=== PATIENT | male | born 1990 | race Caucasian/White ===

== ENCOUNTER 2019-02-05 11:55 | Inpatient (IN) | payer OTHER ==
--- NOTE | 2019-02-05 14:21 | ED ---
Recheck HPI - General Chief Complaint: Recheck/Abnormal Lab/Rx Stated Complaint: cardiac issue Time Seen by Provider: 02/05/19 11:56 Source: patient, family, RN notes reviewed Mode of arrival: wheelchair Limitations: no limitations - History of Present Illness Initial Comments: Is a 28-year-old male history of atrial flutter with ablation when he was a teenager who recently has had near syncopal episodes. He was seen at [facility] today. Increasing symptoms he is found to have a sinus pause of at least 5 seconds on several occasions. Patient was initially to be transferred here for evaluation he chose to come by private vehicle. He has had some lightheadedness during the transfer no chest pain for his breath other symptoms. He does have a family history of heart disease including a sister that from torsades. Currently no other symptoms or complaints. - Related Data Home Medications Medication Instructions Recorded Confirmed No Known Home Medications 02/05/19 02/05/19 Allergies Allergy/AdvReac Type Severity Reaction Status Date / Time No Known Allergies Allergy Verified 02/05/19 12:22 Review of Systems ROS Statement: Those systems with pertinent positive or pertinent negative responses have been documented in the HPI. ROS Other: All systems not noted in ROS Statement are negative. Past Medical History Past Medical History: Atrial Flutter Additional Past Medical History / Comment(s): bradycardia s/p ablation (2007.) History of Any Multi-Drug Resistant Organisms: None Reported Past Surgical History: Ablation, Tonsillectomy Additional Past Surgical History / Comment(s): wisdom tooth extraction Past Psychological History: No Psychological Hx Reported Smoking Status: Never smoker Past Alcohol Use History: Occasional Past Drug Use History: None Reported General Exam - General Exam Comments Initial Comments: This is a well-developed well-nourished awake alert oriented 3 male Limitations: no limitations General appearance: alert, in no apparent distress Head exam: Present: atraumatic, normocephalic, normal inspection Eye exam: Present: normal appearance, PERRL, EOMI. Absent: scleral icterus, conjunctival injection, periorbital swelling ENT exam: Present: normal exam, mucous membranes moist Neck exam: Present: normal inspection. Absent: tenderness, meningismus, lymphadenopathy Respiratory exam: Present: normal lung sounds bilaterally. Absent: respiratory distress, wheezes, rales, rhonchi, stridor Cardiovascular Exam: Present: regular rate, normal rhythm, normal heart sounds. Absent: systolic murmur, diastolic murmur, rubs, gallop, clicks GI/Abdominal exam: Present: soft, normal bowel sounds. Absent: distended, tenderness, guarding, rebound, rigid Extremities exam: Present: normal inspection, full ROM, normal capillary refill. Absent: tenderness, pedal edema, joint swelling, calf tenderness Back exam: Present: normal inspection Neurological exam: Present: alert, oriented X3, CN II-XII intact Psychiatric exam: Present: normal affect, normal mood Skin exam: Present: warm, dry, intact, normal color. Absent: rash Course Vital Signs 02/05/19 02/05/19 11:57 13:16 Temperature 97.9 F Pulse Rate 65 57 L Respiratory 18 16 Rate Blood Pressure 115/36 116/71 O2 Sat by Pulse 98 98 Oximetry - Reevaluation(s) Reevaluation #1: 02/05/19 14:11 I did review the materials presented by staff at [address] [place] [address]. EKG at that facility did show sinus pause. Patient does state his resting heart rates been slow recently in the 50s and 60s apparently was found to be in the 40s at the other facility. Medical Decision Making - Medical Decision Making Repeat troponin was within normal limits. I did discuss case with Dr. Pavon the patient be admitted with consultation by Dr. Hatfield - Lab Data Lab Results 02/05/19 Range/Units 12:27 Troponin I <0.012 (0.000-0.034) ng/mL - EKG Data -: EKG Interpreted by Fl EKG shows normal: sinus rhythm (Sinus rhythm of 63. Interval 228 QRS duration 106 QT/QTC 414/423 for 3 AV block noted) Disposition Clinical Impression: Near syncope, Sinus pause Disposition: ADMITTED IP TO THIS [facility] Condition: Stable Referrals: John Keller MD [Primary Care Provider] - 1-2 days
[2019-02-05] MEDS ORDERED: NALOXONE 0.4 MG/ML 1 ML VIAL IV PRN (14:24)
--- NOTE | 2019-02-05 15:36 | P.CRDCN ---
History of Present Illness Consult date: 02/06/19 Requesting physician: Roque Estrada Reason for Consult (text): Near syncope Chief complaint: Near syncope History of present illness: This is a pleasant 28-year-old gentleman with history of atrial flutter, patient underwent ablation for this at the age of 17, and since then h as done very well. His heart rate normally runs in the 50s to 60s. According to the patient, he recently started running, gradually working himself of the running approximately 2-1/2 miles which she ran yesterday. One week ago the patient had an episode after running a two-mile run where he states that he felt like he was going to pass out, he sat down and the symptoms gradually resolved. Yesterday after running 2-1/2 miles, patient did well, the following morning he was at work, and again felt as though he was going to pass out, he states that he feels like everything is going black from his CPAP. He states that he sat down, checked his heart rate at that time which was in the 40s, he also states it felt as though he had prolonged pauses or periods of time without any pulse. He presented to her left hospital because of the symptoms. Patient is a nonsmoker, rarely drinks alcohol, does not drink energy drinks. He does state that he used to smoke but quit smoking a number of years ago. White blood cell count on MiraLAX 5.6, hemoglobin 14.6, platelet count 269, sodium 140, potassium 3.9, BUN 15, creatinine 0.8. Magnesium 1.9. Troponin 0.05. TSH 1.2. According to the documentation at [facility], patient was noted to have intermittent pauses lasting 3 seconds. Orthostatics were obtained which came back to be negative. He continued to have fairly frequent pauses according to the documentation of up to 4 seconds. Casodex patient was recommended to come to [facility] for further evaluation and treatment. Patient refused to be transported by ambulance and his drove him here. EKG sent for [facility] showed a normal sinus rhythm with evidence of 3 second pauses. Patient was scheduled at the end of the month to see Dr. Hatfield in the office as a new patient. At the time of my examination, patient feels well, denies any palpitations, no dizziness or lightheadedness. I pressure 120/70 with a heart rate of 60, 98% on room air. EKG on presentation here showed a normal sinus rhythm with a first-degree AV block. Past Medical History Past Medical History: Atrial Flutter Additional Past Medical History / Comment(s): bradycardia s/p ablation (2007.) History of Any Multi-Drug Resistant Organisms: None Reported Past Surgical History: Ablation, Tonsillectomy Additional Past Surgical History / Comment(s): wisdom tooth extraction Past Psychological History: No Psychological Hx Reported Smoking Status: Never smoker Past Alcohol Use History: Occasional Past Drug Use History: None Reported - Past Family History Sister(s) Additional Family Medical History / Comment(s): 2015 d/t Torsades de pointes. Growth in heart valve. Mother Additional Family Medical History / Comment(s): arrhythmia Medications and Allergies Home Medications Medication Instructions Recorded Confirmed Type No Known Home Medications 02/05/19 02/05/19 History Allergies Allergy/AdvReac Type Severity Reaction Status Date / Time No Known Allergies Allergy Verified 02/05/19 12:22 Physical Exam Vitals: Vital Signs Temp Pulse Pulse Resp BP BP Pulse Ox 02/05/19 15:13 98 F 64 14 120/70 98 02/05/19 14:54 98.2 F 64 18 129/84 100 02/05/19 13:16 57 L 16 116/71 98 02/05/19 11:57 97.9 F 65 18 115/36 98 Intake and Output 02/05/19 02/05/19 02/05/19 06:59 14:59 22:59 Other: Weight 104.326 kg PHYSICAL EXAMINATION: GENERAL: When he 8-year-old gentleman in no acute distress at the time of my examination HEENT: Head is atraumatic, normocephalic. Pupils equal, round. Sclera anicteric. Conjunctiva are clear. Mucous membranes of the mouth are moist. Neck is supple. There is no elevated jugular venous pressure no carotid bruit is heard. HEART EXAMINATION: Heart S1, S2 normal. No murmur or gallop heard. CHEST EXAMINATION: Lungs are clear to auscultation and precussion. No chest wall tenderness is noted on palpation or with deep breathing. ABDOMEN: Soft, nontender. Bowel sounds are heard. No organomegaly noted. EXTREMITIES: 2+ peripheral pulses with no evidence of peripheral edema and no calf tenderness noted. NEUROLOGIC patient is awake, alert and oriented 3 . . Results 02/06/19 05:59 02/06/19 05:59 Cardiac Enzymes 02/05/19 Range/Units 12:27 Troponin I <0.012 (0.000-0.034) ng/mL Current Medications Generic Name Dose Route Start Last Admin Trade Name Freq PRN Reason Stop Dose Admin Naloxone HCl 0.2 mg 02/05/19 14:24 Narcan IV Q2M PRN Opioid Reversal Intake and Output 02/05/19 02/05/19 02/05/19 06:59 14:59 22:59 Other: Weight 104.326 kg Patient Weight 02/06/19 06:59 Weight 104.326 kg EKG Interpretations (text) EKG shows normal sinus rhythm with first-degree AV block, nonspecific ST-T wave changes Assessment and Plan Plan: Assessment and plan #1 near syncope with evidence of 2-4 second pauses #2 history of atrial flutter ablation 11 years ago #3 prior history of smoking Plan We will obtain an echocardiogram with Doppler study. Continue to monitor the patient's telemetry for further positive. TSH level was normal. Further recommendations to follow. DNP note has been reviewed, I agree with a documented findings and plan of care. Patient was seen and examined.
--- NOTE | 2019-02-06 00:19 | HP ---
HISTORY AND PHYSICAL DATE OF SERVICE: 02/05/2019 CHIEF COMPLAINTS: Presyncopal and feeling dizzy. HISTORY OF PRESENT ILLNESS: This is a 28-year-old gentleman with a past medical history of atrial flutter with history of bradycardia, [place] cardiac [place] [facility] [place] The patient being followed by Dr. Keller in the outpatient. The patient had a syncopal episode during that time and the patient was doing pretty well, but recently the patient was skipping heartbeats and feeling of presyncope and the patient went to [facility] and was found to have sinus pauses up to 5 seconds. Patient referred to [facility]. Patient admitted for further evaluation and treatment. There is no history of any actual syncope or chest pain or palpitations. After admission, the patient had prolonged pauses up to several episodes lasting up to 1.6-2.5 seconds and the patient admitted to the hospital for further evaluation and treatment. Cardiology consultation has been sought. There is no history of fever, rigors or chills. No history of headache, loss of consciousness or seizures, chest pain, palpitations, hematochezia or melena at this time. PAST MEDICAL HISTORY: Past medical history of atrial flutter, history of bradycardia ablation, history of tonsillectomy. MEDICATIONS: Medications prior to admission none. ALLERGIES: None. FAMILY HISTORY: Extensive family history of cardiac disease and one of his sisters of torsade edwin pointes. She was driving and found in a ditch and evaluation showed torsades de pointes and patient and subsequent autopsy showed mitral valve prolapse and possible cardiomyopathy and multiple other members of family also had cardiac arrhythmias also. SOCIAL HISTORY: No history of smoking. Occasional alcohol. No history of substance abuse. REVIEW OF SYSTEMS: ENT: No diminished hearing. No diminished vision. CARDIOVASCULAR as mentioned. RESPIRATORY as mentioned earlier. GI no nausea or vomiting. no dysuria. Nervous system: No numbness or weakness. ALLERGY/IMMUNOLOGY: No asthma or hayfever. MUSCULOSKELETAL as mentioned earlier. HEMATOLOGY/ONCOLOGY: No history of anemia. ENDOCRINE: No history of diabetes or hypothyroidism. CONSTITUTIONAL: As mentioned earlier. DERMATOLOGY negative. RHEUMATOLOGY: Negative. PSYCHIATRIC: As mentioned earlier. PHYSICAL EXAMINATION: The patient is alert and oriented times three. Pulse 55, blood pressure 117/72, respiration 18, temperature 97.8, pulse ox 98% on room air. HEENT is conjunctivae normal. Neck is no jugular venous distention. CARDIOVASCULAR: S1, S2 normal. RESPIRATION: Breath sounds diminished in the bases. No rhonchi. No crackles. ABDOMEN: Soft. Nontender. No mass palpable. LEGS: No edema. No swelling. NERVOUS SYSTEM: Higher functions as mentioned earlier. Moves all four limbs. No focal deficits. LYMPHATICS: No lymph nodes palpable in the neck, axillae or groin. SKIN: No ulcer, no rashes. No bleeding. JOINTS: No active deforming arthropathy. LABS: The troponin is negative. ASSESSMENT: 1. Presyncope with prolonged sinus pauses with cardiac arrhythmia. 2. History of atrial flutter with ablation. 3. History of bradycardia status post ablation. 4. Family history of cardiac rhythm abnormalities including torsades de pointes. 5. History of tonsillectomy. 6. History of recent tooth extraction. RECOMMENDATIONS AND DISCUSSION: In this 28-year-old gentleman who presented with multiple medical issues, we will monitor the patient closely. Continue the telemetry. Cardiology consultation. I will order basic labs and a 2D echo with Doppler. Guarded prognosis. Further recommendations to follow. A copy of this dictation being forwarded to Dr. Keller who is the primary physician. MMODL / IJN: [id number] /
[2019-02-06 06:31] LABS: Basophils # (A) 0.1 k/uL (0-0.2); Basophils % (A) 1 %; Eosinophils # (A) 0.3 k/uL (0-0.7); Eosinophils % (A) 4 %; HCT 44.6 % (39.0-53.0); HGB 14.7 gm/dL (13.0-17.5); Lymphocytes # (A) 1.8 k/uL (1.0-4.8); Lymphocytes % (A) 29 %; MCH 31.1 pg (25.0-35.0); MCHC 32.9 g/dL (31.0-37.0); MCV 94.4 fL (80.0-100.0); Mean Platelet Volume 6.1; Monocytes # (A) 0.5 k/uL (0-1.0); Monocytes % (A) 7 %; Neutrophils # (A) 3.4 k/uL (1.3-7.7); Neutrophils % (A) 56 %; Platelet Count 304 k/uL (150-450); RBC 4.72 m/uL (4.30-5.90); RDW 12.9 % (11.5-15.5); WBC 6.2 k/uL (3.8-10.6)
[2019-02-06 06:51] LABS: ALT 20 U/L (21-72); AST 26 U/L (17-59); African American GFR (CKD) >90 (>60 ml/min/1.73 sqM); Albumin 4.1 g/dL (3.5-5.0); Alkaline Phosphatase 50 U/L (38-126); Anion Gap 12 mmol/L; Blood Urea Nitrogen 15 mg/dL (9-20); Calcium 8.9 mg/dL (8.4-10.2); Carbon Dioxide 21 mmol/L (22-30); Chloride 108 mmol/L (98-107); Glucose 104 mg/dL (74-99); Potassium 4.4 mmol/L (3.5-5.1); Sodium 141 mmol/L (137-145); Total Bilirubin 0.6 mg/dL (0.2-1.3); Total Protein 7.1 g/dL (6.3-8.2)
[2019-02-06 06:56] LABS: Appearance,Urine Clear (Clear); Bilirubin,Urine Negative (Negative); Blood,Urine Negative (Negative); Color,Urine Yellow; Glucose,Urine (UA) Negative (Negative); Ketones,Urine Negative (Negative); Leukocyte Esterase,Urine Negative (Negative); Nitrite,Urine Negative (Negative); Protein,Urine Negative (Negative); Specific Gravity,Urine 1.019 (1.001-1.035); Urobilinogen,Urine <2.0 mg/dL (<2.0)
[2019-02-06 07:18] LABS: Amphetamine Screen,Urine Not Detected (NotDetected); Barbiturate Screen,Urine Not Detected (NotDetected); Benzodiazepines Screen,Urine Not Detected (NotDetected); Cocaine Screen,Urine Not Detected (NotDetected); Methadone Screen, Urine Not Detected (NotDetected); Opiate Screen,Urine Not Detected (NotDetected); Oxycodone Screen, Urine Not Detected (NotDetected); Phencyclidine Screen,Urine Not Detected (NotDetected); Tricyclic Antidepressant,Urine Not Detected (NotDetected); Urn Cannabinoid Scrn Not Detected (NotDetected)
--- NOTE | 2019-02-06 07:41 | XR ---
EXAMINATION TYPE: XR chest 1V portable DATE OF EXAM: 02/06/2019 COMPARISON: 02/05/2019 HISTORY: Shortness of breath TECHNIQUE: Single frontal view of the chest is obtained. FINDINGS: There is no focal air space opacity, pleural effusion, or pneumothorax seen. The cardiac silhouette size is within normal limits. The osseous structures are intact. No overt failure. Heart size normal. IMPRESSION: No acute process.
--- NOTE | 2019-02-06 11:36 | CONS ---
CONSULTATION ADDENDUM NOTE: This is a 28-year-old patient with history of atrial flutter, status post ablation at the age of 17, who presented to initially to [facility] and subsequently been transferred to [facility] with dizziness, near syncope and bradycardia. Patient states that he has started running for the last 2 months and has developed episodes where he felt dizzy and started feeling that his heart was pausing for a few seconds at a time. He felt near syncopal with these, went to the emergency room where he was on an EKG. He was found to have a sinus pause and was told that he had a 4-5 second pause. We do not have a rhythm strip of that. Since being admitted, he has had several pauses, the longest of which was about 3 seconds. He did not have any syncopal events. Did not have any pauses of more than 5 seconds. He did not have any documented ventricular tachyarrhythmia. An echocardiogram on preliminary evaluation shows normal LV function and otherwise structurally normal heart. His sister from torsades and apparently the autopsy showed evidence of mitral valve prolapse. He has family history of paroxysmal SVT and ablation in an aunt. His physical exam is benign and unremarkable. He does not have any heart murmur. His lab workup so far is negative. His hemoglobin is normal. Potassium is 4.4, magnesium is normal at 2. Troponin is negative. TSH is normal at 1.6. His urine drug screen was negative. There is no history of drug abuse. I am going to review records from [facility] where he had the ablation. I am going to perform a regular treadmill stress test on him to rule out chronotropic incompetence and AV block during exercise and I am going to obtain Lyme titers on him to rule out Lyme disease and if patient has documented pauses of more than 3 seconds, he will need a permanent pacemaker. If necessary, I am going to consult an boiler tester. MMTRAN / IJN: [id number] /
--- NOTE | 2019-02-06 12:01 | ECHOF ---
Referral Reason:syncope MEASUREMENTS -------- HEIGHT: 185.4 cm WEIGHT: 104.3 kg BP: RVIDd: 2.7 cm (< 3.3) IVSd: 1.0 cm (0.6 - 1.1) LVIDd: 5.6 cm (3.9 - 5.3) LVPWd: 0.7 cm (0.6 - 1.1) IVSs: 1.6 cm LVIDs: 2.8 cm LVPWs: 1.6 cm LAESV Index (A-L): 23.64 ml/m Ao Diam: 3.5 cm (2.0 - 3.7) AV Cusp: 1.9 cm (1.5 - 2.6) LA Diam: 3.1 cm (2.7 - 3.8) MV EXCURSION: 12.495 mm (> 18.000) MV EF SLOPE: 154 mm/s (70 - 150) EPSS: 1.2 cm MV E Jona: 0.92 m/s MV DecT: 205 ms MV A Jona: 0.75 m/s MV E/A Ratio: 1.22 RAP: 5.00 mmHg RVSP: 19.33 mmHg TAPSE: 27.42 mm FINDINGS -------- Sinus rhythm. This was a technically good study. The left ventricular size is normal. Left ventricular wall thickness is normal. Overall left vent ricular systolic function is normal with, an EF between 55 - 60 %. The diastolic filling pattern is normal for the age of the patient 8.44. The right ventricle is normal in size. The right ventricular systolic function is normal. The left atrial size is normal. Normal LA size by volume 22+/-6 ml/m2. The right atrial size is normal. Interatrial and interventricular septum intact. The aortic valve is trileaflet and appears structurally normal. The mitral valve is normal. There is trace mitral regurgitation. The tricuspid valve appears structurally normal. Trace tricuspid regurgitation present. Right ryan tricular systolic pressure is normal at < 35 mmHg. There is no pulmonic regurgitation present. The aortic root size is normal. Normal inferior vena cava with normal inspiratory collapse consistent with estimated right atrial pre ssure of 5 mmHg. There is no pericardial effusion. CONCLUSIONS -------- 1. Sinus rhythm. 2. This was a technically good study. 3. The left ventricular size is normal. 4. Left ventricular wall thickness is normal. 5. Overall left ventricular systolic function is normal with, an EF between 55 - 60 %. 6. The diastolic filling pattern is normal for the age of the patient 8.44 7. The right ventricle is normal in size. 8. The right ventricular systolic function is normal. 9. The left atrial size is normal. 10. Normal LA size by volume 22+/-6 ml/m2. 11. The right atrial size is normal. 12. Interatrial and interventricular septum intact. 13. The aortic valve is trileaflet and appears structurally normal. 14. The mitral valve is normal. 15. There is trace mitral regurgitation. 16. The tricuspid valve appears structurally normal. 17. Trace tricuspid regurgitation present. 18. Right ventricular systolic pressure is normal at < 35 mmHg. 19. There is no pulmonic regurgitation present. 20. The aortic root size is normal. 21. Normal inferior vena cava with normal inspiratory collapse consistent with estimated right atrial pressure of 5 mmHg. 22. There is no pericardial effusion. WATER PURIFIER: Abbey Rios RDCS
--- NOTE | 2019-02-06 14:24 | EST ---
EXERCISE STRESS AGE: 28 SEX: M HT: 75" WT: 223 PROTOCOL: Lg Stress Test STAGE: 5 DURATION OF EXERCISE: 13:28 HEART RATE REST: 70 BLOOD PRESSURE REST: 119/64 MAXIMUM HEART RATE ACHIEVED: 173 MAXIMUM BLOOD PRESSURE: 158/75 85% MPHR: 163 100% MPHR: 192 METS: 13.9 INDICATIONS: Pauses, syncope. CLINICAL INFORMATION: Baseline EKG revealed normal sinus rhythm without significant ST and T-wave changes. Patient walked on standard Lg protocol for a total duration off 13 minutes 28 seconds, achieved a maximal heart rate of 173 beats per minute, developed fatigue and shortness of breath but did not have any angina or arrhythmia. EKG did not reveal any ST-segment changes to indicate ischemia. By EKG criteria, this is a negative stress test with excellent exercise capacity. BRADLEY / LASHONDAN: [id number] /
--- NOTE | 2019-02-06 18:40 | PN ---
PROGRESS NOTE DATE OF SERVICE: 02/06/2019. This 28-year-old gentleman who was admitted with prolonged sinus pause, also had history of atrial flutter with ablation. Patient has significant family history of multiple cardiac arrhythmias including sudden cardiac also. No chest pain. No palpitations. No fever. EXAM: Alert and oriented times three. Pulse 76. Blood pressure 99/61. Respirations 18, temperature 98.1, pulse ox 94% on room air. HEENT: Conjunctivae normal. NECK: No JVD. CARDIOVASCULAR: S1, S2 muffled. RESPIRATORY: Breath sounds diminished in the bases. No rhonchi. No crackles. Abdomen is soft, nontender. No mass palpable. LEGS: No edema. No swelling. NERVOUS SYSTEM: No focal deficits. LABS: CBC within normal limits. Sodium 140. Potassium 4.4. ASSESSMENT: 1. Presyncope with prolonged sinus pauses and cardiac arrhythmia. 2. History of atrial flutter with ablation. 3. History of bradycardia status post ablation. 4. Family history of cardiac rhythm abnormalities including torsades de pointes with sudden cardiac . 5. History of tonsillectomy. 6. History of wisdom tooth extraction. RECOMMENDATIONS AND DISCUSSION: Recommend to continue current medications, continue with monitoring, management and symptomatic treatment. Closely follow with Cardiology. Stress test has been negative. 2-D echo reviewed. Prognosis guarded. Further recommendations to follow. MMODL / IJN: [id number] /
--- NOTE | 2019-02-06 20:04 | HP ---
HISTORY AND PHYSICAL CHIEF COMPLAINT: Chest pain, palpitations and near-syncope. HISTORY OF PRESENT ILLNESS: This is another admission for this 28-year-old white male. All of his problems started when he was in high school and track. After track meet, he became lightheaded and dizzy and was apparently found to have a supraventricular tachycardia. He went on to have an ablation done. This was done elsewhere. He does exercise a lot and lately after he is done running, he felt that his heart was slowing way down and he would become at times dizzy. He almost passed out last week and this happened again today prior to coming to the emergency room. There are other interesting features to his history, which include the fact that he has a PFO. He has not had chest pain. His [place] he was 17 [place] old [place] [facility] [place] He has had times in the past when he was evaluated for what he thought was a slowing of the heart and he was found to have pauses. There was talk about his needing a pacemaker at 1 point. His family history is significant in that there are several family members who have had atrial fibrillation and another family member had ventricular tachycardia and he had a sister who at 21 who had an abnormal mitral valve and of torsade de Pointe. Autopsy that the patient (his sister) was found to have left ventricular hypertrophy. He does not take any medicine. He is not allergic to any. He has had a T and A as his only surgery. He does not smoke or drink. PHYSICAL EXAMINATION: Blood pressure is 119/73 with a pulse of 60, respirations of 15 and he is afebrile. In general, he appeared well developed, well nourished, in no acute distress. Skin color is normal. Skin is warm dry and lymph nodes not enlarged. Head, ears, eyes, nose, mouth, and throat were normal. Neck veins not distended. Thyroid not enlarged. CHEST: Clear. Cardiac exam sounds like a slow sinus rhythm and there is no definite murmur. There may be a split 2nd heart sound, but it is difficult to tell. Abdomen is soft and nontender. There is no cardiomegaly. Abdomen is soft and nontender without any visceromegaly or masses. Bowel sounds present. Extremities normal. Neurologically he is intact. IMPRESSION: He is admitted to the hospital with diagnoses: 1. History of cardiac arrhythmia including supraventricular tachycardia and episodes of profound bradycardia with lightheadedness or near-syncope. 2. Patent foramen ovale by history. 3. History of cardiac ablation. 4. Family history of heart disease with arrhythmias. 5. Rule out congenital or genetic cardiac disease including cardiomyopathy. PLAN: 1. Bed rest. 2. IV fluids. 3. Echocardiogram. 4. Serial EKGs and enzymes. 5. Cardiology consult. 6. Would be recommended that he undergo genetic testing. MMODL / IJN: [id number] /
[2019-02-07 07:10] LABS: Basophils # (A) 0.1 k/uL (0-0.2); Basophils % (A) 1 %; Eosinophils # (A) 0.2 k/uL (0-0.7); Eosinophils % (A) 4 %; HCT 46.2 % (39.0-53.0); HGB 15.1 gm/dL (13.0-17.5); Lymphocytes # (A) 1.9 k/uL (1.0-4.8); Lymphocytes % (A) 28 %; MCH 30.7 pg (25.0-35.0); MCHC 32.7 g/dL (31.0-37.0); MCV 93.7 fL (80.0-100.0); Monocytes # (A) 0.5 k/uL (0-1.0); Monocytes % (A) 8 %; Neutrophils # (A) 3.9 k/uL (1.3-7.7); Neutrophils % (A) 58 %; Platelet Count 303 k/uL (150-450); RBC 4.93 m/uL (4.30-5.90); RDW 12.9 % (11.5-15.5); WBC 6.9 k/uL (3.8-10.6)
--- NOTE | 2019-02-07 12:36 | P.PN ---
Subjective Progress Note Date: 02/07/19 This is a pleasant 28-year-old gentleman with history of atrial flutter, patient underwent ablation for this at the age of 17, and since then has done very well. His heart rate normally runs in the 50s to 60s. According to the patient, he recently started running, gradually working himself of the running approximately 2-1/2 miles which she ran yesterday. One week ago the patient had an episode after running a two-mile run where he states that he felt like he was going to pass out, he sat down and the symptoms gradually resolved. Yesterday after running 2-1/2 miles, patient did well, the following morning he was at work, and again felt as though he was going to pass out, he states that he feels like everything is going black from his CPAP. He states that he sat down, checked his heart rate at that time which was in the 40s, he also states it felt as though he had prolonged pauses or periods of time without any pulse. He presented to her left hospital because of the symptoms. Patient is a nonsmoker, rarely drinks alcohol, does not drink energy drinks. He does state that he used to smoke but quit smoking a number of years ago. White blood cell count on MiraLAX 5.6, hemoglobin 14.6, platelet count 269, sodium 140, potassium 3.9, BUN 15, creatinine 0.8. Magnesium 1.9. Troponin 0.05. TSH 1.2. According to the documentation at [facility], patient was noted to have intermittent pauses lasting 3 seconds. Orthostatics were obtained which came back to be negative. He continued to have fairly frequent pauses according to the documentation of up to 4 seconds. Casodex patient was recommended to come to [facility] for further evaluation and treatment. Patient refused to be transported by ambulance and his drove him here. EKG sent for [facility] showed a normal sinus rhythm with evidence of 3 second pauses. Patient was scheduled at the end of the month to see Dr. Hatfield in the office as a new patient. At the time of my examination, patient feels well, denies any palpitations, no dizziness or lightheadedness. Blood pressure 120/70 with a heart rate of 60, 98% on room air. EKG on presentation here showed a normal sinus rhythm with a first-degree AV block. Patient seen and examined this morning, he had several episodes of pauses noted on the monitor through the night, all less than 2 seconds in duration. We also reviewed the rhythm strips from [facility], it did show several episodes of pauses up to 3 seconds, 1 pause was just shy of 4 seconds. At the time of her examination today, patient feels well, he denies any dizziness or lightheadedness, but does state through the night that he had 1 brief episode where he just did not feel right. We have put him in consultation this morning for Dr. Hatfield to come and evaluate the patient. Hemodynamically he is stable. Objective - Vital Signs Vital signs: Vital Signs Temp 97.5 F L 02/07/19 12:15 Pulse 62 02/07/19 12:15 Resp 18 02/07/19 12:15 BP 124/74 02/07/19 12:15 Pulse Ox 99 02/07/19 12:15 Intake & Output 02/06/19 02/07/19 02/07/19 18:59 06:59 18:59 Intake Total 720 240 Balance 720 240 Weight 101.3 kg Intake: Oral 720 240 Other: # Voids 2 1 2 - Exam PHYSICAL EXAMINATION: GENERAL: When he 8-year-old gentleman in no acute distress at the time of my examination HEENT: Head is atraumatic, normocephalic. Pupils equal, round. Sclera anicteric. Conjunctiva are clear. Mucous membranes of the mouth are moist. Neck is supple. There is no elevated jugular venous pressure no carotid bruit is heard. HEART EXAMINATION: Heart S1, S2 normal. No murmur or gallop heard. CHEST EXAMINATION: Lungs are clear to auscultation and precussion. No chest wall tenderness is noted on palpation or with deep breathing. ABDOMEN: Soft, nontender. Bowel sounds are heard. No organomegaly noted. EXTREMITIES: 2+ peripheral pulses with no evidence of peripheral edema and no calf tenderness noted. NEUROLOGIC patient is awake, alert and oriented 3 . . - Labs CBC & Chem 7: 02/07/19 06:24 02/06/19 05:59 Assessment and Plan Plan: Assessment and plan #1 near syncope with evidence of 2-4 second pauses #2 history of atrial flutter ablation 11 years ago #3 prior history of smoking Plan Echocardiogram with Doppler study was performed which revealed an ejection fraction of 55-60%. We will continue to monitor the patient, consultation has been requested with Dr. Hatfield to evaluate the patient. Further recommendations to follow. DNP note has been reviewed, I agree with a documented findings and plan of care. Patient was seen and examined.
--- NOTE | 2019-02-07 12:40 | P.PN ---
Subjective Patient is admitted for symptomatic bradycardia near-syncope and sinus pauses. Patient had a stress test which was negative Doppler normal ejection fraction of physiology is being consulted for possible pacemaker placement. Constitutional: Denied any fatigue denied any fever. Cardio vascular: denied any chest pain, palpitations Gastrointestinal denied any nausea vomiting Pulmonary: Denied any shortness of breath cough Neurologic denied any new focal deficits All inpatient medications were reviewed and appropriate changes in these medications as dictated in the interval history and assessment and plan. Objective - Vital Signs Vital signs: Vital Signs Temp 97.5 F L 02/07/19 12:15 Pulse 62 02/07/19 12:15 Resp 18 02/07/19 12:15 BP 124/74 02/07/19 12:15 Pulse Ox 99 02/07/19 12:15 Intake & Output 02/06/19 02/07/19 02/07/19 18:59 06:59 18:59 Intake Total 720 240 Balance 720 240 Weight 101.3 kg Intake: Oral 720 240 Other: # Voids 2 1 2 - Exam PHYSICAL EXAMINATION: GENERAL: The patient is alert and oriented x3, not in any acute distress. Well developed, well nourished. HEENT: Pupils are round and equally reacting to light. EOMI. No scleral icterus. No conjunctival pallor. Normocephalic, atraumatic. No pharyngeal erythema. No thyromegaly. CARDIOVASCULAR: S1 and S2 present. No murmurs, rubs, or gallops. PULMONARY: Chest is clear to auscultation, no wheezing or crackles. ABDOMEN: Soft, nontender, nondistended, normoactive bowel sounds. No palpable organomegaly. MUSCULOSKELETAL: No joint swelling or deformity. EXTREMITIES: No cyanosis, clubbing, or pedal edema. NEUROLOGICAL: Gross neurological examination did not reveal any focal deficits. SKIN: No rashes. - Labs CBC & Chem 7: 02/07/19 06:24 02/06/19 05:59 Assessment and Plan Plan: -Presyncope with the sinus pauses: Patient will be evaluated by EP for possible pacemaker placement. -History of atrial flutter with ablation in the past
[2019-02-07] MEDS ORDERED: HYOSCYAMINE SULFATE 0.375 MG TAB.ER.12H PO STA (14:22)
--- NOTE | 2019-02-07 20:09 | PN ---
PROGRESS NOTE DATE OF SERVICE: 02/06/2019 CHIEF COMPLAINT: Bradycardia and dizziness. HISTORY OF PRESENT ILLNESS: This gentleman had a good night and is stable. Apparently he has been assigned to a different physician. He is doing well this morning and has no complaints. His family is at the bedside. If he requires any further care from me, I will be happy to become involved in this very interesting and concerning case. MMTRAN / IJN: [id number] /
[2019-02-08] MEDS ORDERED: HYOSCYAMINE SULFATE 0.375 MG TAB.ER.12H PO STA (06:50)
[2019-02-08 07:29] LABS: Basophils % (A) 1 %; Eosinophils # (A) 0.2 k/uL (0-0.7); Eosinophils % (A) 3 %; HCT 44.5 % (39.0-53.0); HGB 15.2 gm/dL (13.0-17.5); Lymphocytes # (A) 1.9 k/uL (1.0-4.8); Lymphocytes % (A) 30 %; MCH 32.1 pg (25.0-35.0); MCHC 34.2 g/dL (31.0-37.0); Mean Platelet Volume 5.4; Monocytes # (A) 0.4 k/uL (0-1.0); Monocytes % (A) 7 %; Neutrophils # (A) 3.5 k/uL (1.3-7.7); Neutrophils % (A) 57 %; Platelet Count 287 k/uL (150-450); RBC 4.73 m/uL (4.30-5.90); WBC 6.2 k/uL (3.8-10.6)
[2019-02-08 07:40] LABS: African American GFR (CKD) >90 (>60 ml/min/1.73 sqM); Anion Gap 9 mmol/L; Blood Urea Nitrogen 14 mg/dL (9-20); Calcium 9.4 mg/dL (8.4-10.2); Carbon Dioxide 27 mmol/L (22-30); Chloride 105 mmol/L (98-107); Glucose 100 mg/dL (74-99); Potassium 4.7 mmol/L (3.5-5.1); Sodium 141 mmol/L (137-145)
--- NOTE | 2019-02-08 08:01 | P.CRDCN ---
History of Present Illness Chief complaint: SSS/J waves on ECG History of present illness: Electrophysiology consult requested by Dr. Florence Patient interviewed and examined, his past records from [facility] were reviewed, the records of his sister who had sudden cardiac were reviewed including 2 ECGs, ECG and rhythm strips from the EMS and the autopsy report Impression 17-year-old male patient presenting with clear-cut evidence of sick sinus syndrome, Associated with symptoms of dizzy spells and presyncope ECGs performed in the outside hospital document Sinus pauses of up to 5 seconds Abnormal J waves is in the inferior leads of 2, 3 and aVF, notched pattern, Amplitude greater than 0.1 mV, on consecutive ECGs Past history of atrial flutter and multiple other right atrial tachycardias/atypical flutter is at the age of 17 years Status post radiofrequency ablation for typical atrial flutter with multiple other linear ablations performed in the lateral right atrium, michell terminalis area, right atrial appendage, septum/foci ovalis to coronary sinus The twelve-lead EKG Also shows a mildly prolonged NC interval His conduction system disease 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 His NC interval preprocedure was normal at 174 ms. 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 It is very likely that this family will have a genetic basis for cardiac conduction system disease as well as sudden syndromes/J wave syndromes/ probable Brugada syndrome Recommendations For symptomatic relief, temporarily, I'm treating him with an oral atropine-like medication, Hyoscyamine He should be observed for at least 24 hours on this medication to see if he has any symptomatic long sinus pauses Repeat 12-lead ECG on this medication I had a very detailed discussion with the patient, his and his parents Ultimately I would recommend a dual-chamber ICD in this gentleman given his sick sinus syndrome abnormal NC interval, abnormal HV interval in 2007, abnormal J waves and family history of sudden secondary to a J wave syndrome However it would be prudent to delay implantation of this ICD, obtain advanced imaging studies of the heart before such implantation and subsequently genetic testing of this family/index patient to evaluate for Brugada syndromes, sinus node dysfunction/PCCD - DARCIE A/C gene, or the absence of SCN 5A gene, consistent with J wave syndromes No driving until implantation of the ICD. This was discussed with the patient History of present illness/YUROK 38-year-old male patient who presented to the [facility] complaining of being very dizzy at work. The patient went to work as usual and at about 8:00 or so he started experiencing dizziness and he stated he felt pauses. When he arrived in the emergency room of [place] he had documented sinus pauses between 4- 5 seconds. Subsequently he was transferred to [facility] for further management. Here he has had shorter pauses but clear evidence of sick sinus syndrome. He also has nighttime pulses secondary to Mobitz type II block and sinus bradycardia but this is a vagal effect His symptoms during the daytime are associated with sinus pauses ranging from 2- 5 seconds. His clinical history is not suggestive of any vagal trigger. He was doing fine that day he was not in any. He is not experiencing any cramping of the abdomen nausea and sweatiness of any vagal-like effects when he started getting dizzy at work He has not had any syncope. No chest discomfort no angina like symptoms 12 lead ECG shows a prolonged NC interval of about 220-240 ms and the 2 different ECGs. He is abnormal ST segment elevation in the inferior leads 23 and aVF of greater than 0.1 mV. This has the morphology of GV if symptoms, the notched pattern followed by ST elevation, saddle-shaped. Twelve-lead ECGs show this abnormality in 3 contiguous leads There are no delta waves no epsilon waves and the ST segment in leads V1-V3 are normal. His QT interval was normal. There is no evidence for left ventricular hypertrophy. Past history At the age of 17 years he was documented to have atrial flutter persisted for greater than one week. He underwent an EP study and a very long ablation procedure at [facility] The following ablations were performed #1 typical atrial flutter ablation, every tricuspid. Bidirectional block was difficult to obtain. RS lines were made in the isthmus followed by a line from the coronary sinus to the isthmus which finally resulted in bidirectional block across the isthmus Thereafter multiple other atrial tachycardias and flutters were induced RF ablation along the lateral wall of the right atrium was performed in the michell terminalis for management of lower loop reentry Radio frequency ablations were also performed in the right atrial appendage Septal ablation from the fossa ovalis to the coronary sinus was also performed which resulted in termination of the arrhythmia/atrial tachycardia His baseline HV interval was 70 ms prior to starting the ablation Subsequently he had to be observed in the hospital for sinus bradycardia after this ablation, he was once again hospitalized for severe sinus bradycardia in the 30s. He now presents with long symptomatic sinus pauses Documented history of typical atrial flutter and right atrial tachycardia/atypical right atrial flutter is at the age of 17 years Significant family history/FH His family history is very significant for sudden cardiac , witnessed, but documented ECGs and an autopsy to follow His sister at the age of 30 years, around 2016 was driving when she had a near- syncopal episode did EMS and the police arrived on the scene. She had regained consciousness spontaneously and had a normal rhythm. She was talking to them when once again she started posturing and lost her pulse. The ECG showed a wide-complex rhythm which quickly degenerated to ventricular fibrillation. This apparently healthy lady could not be resuscitated. She had been complaining of palpitations the week prior. She was about 510 in height and about 200 pounds in weight Yesterday her mother brought her entire records for my review She has a twelve-lead ECG from 2011 which looks completely normal. There are no abnormalities suggesting any of this sudden syndromes. Specifically the ST segments in lead V1 to V3 look normal, there is no J-point elevation in the inferior leads of the high lateral leads, the QT interval was normal, no epsilon waves, no delta waves, no T-wave inversions in the anterior precordial leads, no evidence for left ventricular hypertrophy She had a subsequent 12-lead ECG in 2014 This shows an abnormality in 2 contiguous leads of V1 and V2. This abnormality is subtle and resembles a type I Brugada morphology but it does not meet the criteria since it does not meet voltage criteria for this condition. The QT interval was normal. No J-point elevation noted in the inferior or the lateral leads She had a 2-D echo around the same time which showed preserved LV size and systolic function normal RV size and function normal valves. No mitral prolapse was seen. I reviewed the rhythm strips at the scene of a cardiac arrest. This shows a wide-complex tachycardia briefly and then degeneration into ventricular fibrillation The mother is a nurse has given a history of torsades de pointes. This is NOT torsades de pointes but simply ventricular fibrillation She had an autopsy thereafter which suggested left ventricular hypertrophy with a maximal LV wall with the 1.6 cm, normal right ventricle no evidence for coronary artery disease him a no evidence for any scar in the left ventricle, no evidence for any inflammatory process in the myocardium. The mitral valve was noted to be thickened and curled and a diagnosis of mitral valve was made. The cause of was deemed to be mitral valve prolapse. Review of other hospital data Labs are reviewed toxicologies normal troponins normal electrolytes and normal 2-D echo and Doppler study report suggests structurally normal heart On examination of this patient No JVD or bruits Normal heart sounds no murmurs no gallops no click no rub Breath sounds are clear no rhonchi no crackles Abdomen soft nontender Extremities are warm no edema Heart rates ranged from sinus bradycardia to normal heart rates Blood pressure normal respirations normal Past Medical History Past Medical History: Atrial Flutter Additional Past Medical History / Comment(s): bradycardia s/p ablation (2007.) History of Any Multi-Drug Resistant Organisms: None Reported Past Surgical History: Ablation, Tonsillectomy Additional Past Surgical History / Comment(s): wisdom tooth extraction Past Anesthesia/Blood Transfusion Reactions: No Reported Reaction Past Psychological History: No Psychological Hx Reported Smoking Status: Never smoker Past Alcohol Use History: Occasional Past Drug Use History: None Reported - Past Family History Sister(s) Additional Family Medical History / Comment(s): 2016 d/t Torsades de pointes. Growth in heart valve. Mother Additional Family Medical History / Comment(s): arrhythmia Medications and Allergies Home Medications Medication Instructions Recorded Confirmed Type No Known Home Medications 02/05/19 02/05/19 History Allergies Allergy/AdvReac Type Severity Reaction Status Date / Time No Known Allergies Allergy Verified 02/05/19 12:22 Physical Exam Vitals: Vital Signs Temp Pulse Resp BP Pulse Ox 02/08/19 04:00 97.4 F L 58 L 18 122/59 97 02/07/19 23:55 56 L 18 02/07/19 23:50 97.0 F L 56 L 18 106/55 98 02/07/19 20:00 97.6 F 54 L 18 120/71 98 02/07/19 16:00 57 L 16 121/69 98 02/07/19 12:15 97.5 F L 62 18 124/74 99 02/07/19 11:47 62 20 133/76 100 02/07/19 08:00 97.5 F L 61 20 122/80 97 Intake and Output 02/07/19 02/07/19 02/08/19 14:59 22:59 06:59 Intake Total 480 240 Balance 480 240 Intake: Oral 480 240 Other: Voiding Method Toilet Toilet # Voids 2 2 1 Weight 101.2 kg Results 02/08/19 06:36 02/08/19 06:36 CBC 02/07/19 Range/Units 06:24 WBC 6.9 (3.8-10.6) k/uL RBC 4.93 (4.30-5.90) m/uL Hgb 15.1 (13.0-17.5) gm/dL Hct 46.2 (39.0-53.0) % Plt Count 303 (150-450) k/uL Current Medications Generic Name Dose Route Start Last Admin Trade Name Freq PRN Reason Stop Dose Admin Naloxone HCl 0.2 mg 02/05/19 14:24 Narcan IV Q2M PRN Opioid Reversal Intake and Output 02/07/19 02/07/19 02/08/19 14:59 22:59 06:59 Intake Total 480 240 Balance 480 240 Intake: Oral 480 240 Other: Voiding Method Toilet Toilet # Voids 2 2 1 Weight 101.2 kg Patient Weight 02/08/19 06:59 Weight 101.2 kg 02/07/19 06:24 02/06/19 05:59
--- NOTE | 2019-02-08 11:24 | P.PN ---
Subjective Progress Note Date: 02/08/19 This is a pleasant 28-year-old gentleman with history of atrial flutter, patient underwent ablation for this at the age of 17, and since then has done very well. His heart rate normally runs in the 50s to 60s. According to the patient, he recently started running, gradually working himself of the running approximately 2-1/2 miles which she ran yesterday. One week ago the patient had an episode after running a two-mile run where he states that he felt like he was going to pass out, he sat down and the symptoms gradually resolved. Yesterday after running 2-1/2 miles, patient did well, the following morning he was at work, and again felt as though he was going to pass out, he states that he feels like everything is going black from his CPAP. He states that he sat down, checked his heart rate at that time which was in the 40s, he also states it felt as though he had prolonged pauses or periods of time without any pulse. He presented to her left hospital because of the symptoms. Patient is a nonsmoker, rarely drinks alcohol, does not drink energy drinks. He does state that he used to smoke but quit smoking a number of years ago. White blood cell count on MiraLAX 5.6, hemoglobin 14.6, platelet count 269, sodium 140, potassium 3.9, BUN 15, creatinine 0.8. Magnesium 1.9. Troponin 0.05. TSH 1.2. According to the documentation at [facility], patient was noted to have intermittent pauses lasting 3 seconds. Orthostatics were obtained which came back to be negative. He continued to have fairly frequent pauses according to the documentation of up to 4 seconds. Casodex patient was recommended to come to [facility] for further evaluation and treatment. Patient refused to be transported by ambulance and his drove him here. EKG sent for [facility] showed a normal sinus rhythm with evidence of 3 second pauses. Patient was scheduled at the end of the month to see Dr. Hatfield in the office as a new patient. At the time of my examination, patient feels well, denies any palpitations, no dizziness or lightheadedness. Blood pressure 120/70 with a heart rate of 60, 98% on room air. EKG on presentation here showed a normal sinus rhythm with a first-degree AV block. 02/07 Patient seen and examined this morning, he had several episodes of pauses noted on the monitor through the night, all less than 2 seconds in duration. We also reviewed the rhythm strips from [facility], it did show several episodes of pauses up to 3 seconds, 1 pause was just shy of 4 seconds. At the time of her examination today, patient feels well, he denies any dizziness or lightheadedness, but does state through the night that he had 1 brief episode where he just did not feel right. We have put him in consultation this morning for Dr. Hatfield to come and evaluate the patient. Hemodynamically he is stable. 02/08/2019 Patient seen and examined this morning, he was seen in consultation by Dr. Hatfield, plans are for the patient to proceed with implantation of AICD tomorrow. in a lengthy discussion with the patient and his along with his parents. Objective - Vital Signs Vital signs: Vital Signs Temp 97.8 F 02/08/19 08:00 Pulse 57 L 02/08/19 08:00 Resp 18 02/08/19 08:00 BP 117/78 02/08/19 08:00 Pulse Ox 100 02/08/19 08:00 Intake & Output 02/07/19 02/08/19 02/08/19 18:59 06:59 18:59 Intake Total 720 240 Balance 720 240 Weight 101.2 kg Intake: Oral 720 240 Other: Voiding Method Toilet # Voids 2 1 1 - Exam PHYSICAL EXAMINATION: GENERAL: When he 8-year-old gentleman in no acute distress at the time of my examination HEENT: Head is atraumatic, normocephalic. Pupils equal, round. Sclera anicteric. Conjunctiva are clear. Mucous membranes of the mouth are moist. Neck is supple. There is no elevated jugular venous pressure no carotid bruit is heard. HEART EXAMINATION: Heart S1, S2 normal. No murmur or gallop heard. CHEST EXAMINATION: Lungs are clear to auscultation and precussion. No chest wall tenderness is noted on palpation or with deep breathing. ABDOMEN: Soft, nontender. Bowel sounds are heard. No organomegaly noted. EXTREMITIES: 2+ peripheral pulses with no evidence of peripheral edema and no calf tenderness noted. NEUROLOGIC patient is awake, alert and oriented 3 . . - Labs CBC & Chem 7: 02/08/19 06:36 02/08/19 06:36 Labs: Abnormal Lab Results - Last 24 Hours (Table) 02/08/19 Range/Units 06:36 Glucose 100 H (74-99) mg/dL Assessment and Plan Plan: Assessment and plan #1 near syncope with evidence of 2-4 second pauses #2 history of atrial flutter ablation 11 years ago #3 prior history of smoking Plan Patient has been seen in consultation by Dr. Hatfield, he will undergo implantation of an AICD tomorrow. DNP note has been reviewed, I agree with a documented findings and plan of care. Patient was seen and examined.
[2019-02-08] MEDS ORDERED: SODIUM CHLORIDE 0.9% 1,000 ML IV SCH ×2 (20:15)
[2019-02-09] MEDS ORDERED: IV FLUID CONTINUATION 1,000 ML IV ONE (07:32)
[2019-02-09] MEDS ORDERED: diphenhydrAMINE 50 MG/ML 1 ML VIAL ONE (07:35)
[2019-02-09] MEDS ORDERED: PROPOFOL 10 MG/ML 20 ML VIAL IV ONE (07:35)
[2019-02-09] MEDS ORDERED: MIDAZOLAM 2 MG/2 ML VIAL ONE (07:35)
[2019-02-09] MEDS ORDERED: fentaNYL (PF) 50 MCG/ML 2 ML AMP ONE (07:35)
[2019-02-09] MEDS ORDERED: HYDROcodone/APAP 5-325MG 1 EACH TAB PO PRN (07:55)
[2019-02-09] MEDS ORDERED: LIDOCAINE 1% INJ 10MG/ML (20 ML MDV) ONE (07:56)
[2019-02-09] MEDS ORDERED: IOPAMIDOL-370 50ML BTL INJ ONE (07:58)
[2019-02-09] MEDS ORDERED: ceFAZolin 1,000 MG in SODIUM CHLORIDE 0.9% IRRIGATIO 250 ML IRRIGATION ONE (08:00)
[2019-02-09] MEDS ORDERED: LIDOCAINE 1% INJ 10MG/ML (20 ML MDV) SQ ONE ×2 (08:22→08:26)
[2019-02-09] MEDS ORDERED: ACETAMINOPHEN IV (For NPO) 1,000 MG in EMPTY BAG 1 BAG IVPB ONE (09:00)
[2019-02-09] MEDS ORDERED: LACTATED RINGERS 1,000 ML IV ONE (09:20)
--- NOTE | 2019-02-09 10:40 | P.PN ---
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; pauses have been less than 2 seconds in majority of episodes; patient did have one episode of possible switch lasted almost 4 seconds; patient is being evaluated by cardiology and is recommended AICD implantation tomorrow Objective - Vital Signs Vital signs: Vital Signs Temp 97.8 F 02/08/19 08:00 Pulse 57 L 02/08/19 08:00 Resp 18 02/08/19 08:00 BP 117/78 02/08/19 08:00 Pulse Ox 100 02/08/19 08:00 Intake & Output 02/07/19 02/08/19 02/08/19 18:59 06:59 18:59 Intake Total 720 240 Balance 720 240 Weight 101.2 kg Intake: Oral 720 240 Other: Voiding Method Toilet # Voids 2 1 1 - Exam - Constitutional General appearance: Present: average body habitus, cooperative, no acute distre ss - EENT Eyes: Present: anicteric sclerae, EOMI, PERRLA, normal appearance ENT: Present: hearing grossly normal, normal oropharynx Ears: bilateral: normal - Neck Neck: Present: normal ROM. Absent: lymphadenopathy, rigidity, thyromegaly Carotids: negative: bruit present Thyroid: bilateral: normal size, negative: enlarged, nodule - Respiratory Respiratory: bilateral: CTA, negative: rales, rhonchi, wheezing - Cardiovascular Rhythm: regular Heart sounds: normal: S1, S2 Abnormal Heart Sounds: Absent: systolic murmur, diastolic murmur - Gastrointestinal General gastrointestinal: Present: normal bowel sounds, soft. Absent: distended, organomegaly, tenderness - Genitourinary Genitourinary Comment(s): deferred - Integumentary Integumentary: Present: normal turgor. Absent: jaundiced, rash, ulcer - Neurologic Neurologic: Present: CNII-XII intact. Absent: focal deficits - Musculoskeletal Musculoskeletal: Present: gait normal, strength equal bilaterally - Psychiatric Psychiatric: Present: A&O x's 3, appropriate affect, intact judgment & insight - Labs CBC & Chem 7: 02/08/19 06:36 02/08/19 06:36 Labs: Abnormal Lab Results - Last 24 Hours (Table) 02/08/19 Range/Units 06:36 Glucose 100 H (74-99) mg/dL Assessment and Plan Assessment: -Presyncope with the sinus pauses: Patient will be evaluated by EP for possible pacemaker placement. -History of atrial flutter with ablation in the past Patient is scheduled for AICD placement tomorrow morning; patient and family are agreeable Time with Patient: Greater than 30
--- NOTE | 2019-02-09 12:46 | P.PN ---
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; pauses have been less than 2 seconds in majority of episodes; patient did have one episode of possible switch lasted almost 4 seconds; patient is being evaluated by cardiology and is recommended AICD implantation tomorrow 02/19/2019 Patient is seen and evaluated in room at bedside; multiple family members are present in the room; patient is status post dual-chamber ICD implant; denies any specific complaints Vital signs remain stable with a temperature of 98.2, pulse 57, respiration 20 and blood pressure 110/65; SpO2 of 80% on room air Labs reveal a normal CBC and chemical profile is unremarkable Per cardiology patient will be monitored on telemetry for another 24 hours and possible discharge tomorrow if remains stable Objective - Vital Signs Vital signs: Vital Signs Temp 98.4 F 02/09/19 03:40 Pulse 65 02/09/19 03:40 Resp 16 02/09/19 03:40 BP 106/56 02/09/19 03:40 Pulse Ox 98 02/09/19 03:40 Intake & Output 02/08/19 02/09/19 02/09/19 18:59 06:59 18:59 Intake Total 240 1050 Balance 240 1050 Intake: IV 1050 Oral 240 Other: Voiding Method Toilet # Voids 1 - Exam - Constitutional General appearance: Present: average body habitus, cooperative, no acute distress - EENT Eyes: Present: anicteric sclerae, EOMI, PERRLA, normal appearance ENT: Present: hearing grossly normal, normal oropharynx Ears: bilateral: normal - Neck Neck: Present: normal ROM. Absent: lymphadenopathy, rigidity, thyromegaly Carotids: negative: bruit present Thyroid: bilateral: normal size, negative: enlarged, nodule - Respiratory Respiratory: bilateral: CTA, negative: rales, rhonchi, wheezing - Cardiovascular Rhythm: regular Heart sounds: normal: S1, S2 Abnormal Heart Sounds: Absent: systolic murmur, diastolic murmur - Gastrointestinal General gastrointestinal: Present: normal bowel sounds, soft. Absent: distended, organomegaly, tenderness - Genitourinary Genitourinary Comment(s): deferred - Integumentary Integumentary: Present: normal turgor. Absent: jaundiced, rash, ulcer - Neurologic Neurologic: Present: CNII-XII intact. Absent: focal deficits - Musculoskeletal Musculoskeletal: Present: gait normal, strength equal bilaterally - Psychiatric Psychiatric: Present: A&O x's 3, appropriate affect, intact judgment & insight - Labs CBC & Chem 7: 02/08/19 06:36 02/08/19 06:36 Assessment and Plan Assessment: -Presyncope with the sinus pauses: Patient will be evaluated by EP for possible pacemaker placement. -History of atrial flutter with ablation in the past Patient is scheduled for AICD placement tomorrow morning; patient and family are agreeable Time with Patient: Greater than 30
[2019-02-09] MEDS: ACETAMINOPHEN TAB 325 MG TAB PO PRN ×2 (18:02→23:24)
--- NOTE | 2019-02-09 22:33 | PCN ---
PROCEDURE NOTE Jason Villa is a 28-year-old male patient who presented with symptomatic sick sinus syndrome and sinus pauses up to 5 seconds without any clear-cut triggers. He has a history of atrial flutter and atypical flutters with extensive ablation in the right atrium at [facility] at the age of 18. Subsequently he had AV block as well as evidence of sick sinus syndrome, but was managed conservatively. He has had 2 prior admissions for severe sinus bradycardia in the 30s. At this time, he came in with sudden onset of sinus pauses and being very dizzy. He is not on any medications. His 12-lead ECG is abnormal and has evidence of J-point elevation in the inferior leads of around 2 mm with a notched pattern in 3 contiguous leads. His sister had sudden cardiac and could not be resuscitated despite of witnessed event. She had wide-complex tachycardia followed by ventricular fibrillation. I reviewed two 12-lead EKGs. The 1st 1 in 2011 was normal and the 2nd 1 had a morphology in the leads V1 and V2 similar to a type 1 Brugada but it did not meet the voltage criteria. After a very detailed discussion and the diagnoses #1 atrial arrhythmias. #2 prolonged HV interval of 70 milliseconds that was documented in 2007 at the EP study in [facility]. #3 Now with evidence of symptomatic sick sinus syndrome and long sinus pauses, mildly prolonged p.r.n. interval. Abnormal J waves 2 mm in amplitude with a notched pattern in leads 2, 3 and AVF. A family history of sudden cardiac with a witnessed ventricular fibrillation with 1 ECG in the sister suggestive of possible Brugada syndrome. 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 Possible underlying CCB and a dual-chamber ICD was recommended after due deliberation. Patient was brought to the EP lab in a fasting state. Written informed consent was obtained prior to the procedure. The left shoulder area was prepped and draped as per protocol. 1% lidocaine was used for local anesthesia. A 4 cm incision was made parallel to the deltopectoral groove, about 1.5 cm medial to it. The incision was carried down to the level of the pectoralis muscle. A subfascial pocket was made. Hemostasis was assured. The left axillary vein was accessed at 2 separate points in a very lateral location and access was successfully obtained. Two leads were positioned in the right heart. The atrial lead was a [employer] tendril STS model #2088 PC, 52 cm length and serial number [id number]. Lead was screwed in the right atrial appendage. P waves were greater than 2 mV, pacing impedance 481 ohms, pacing threshold 0.5 V at 0.5 millisecond. The ICD lead was a single coil lead [employer] Opt[employer] model number [id number] Q, 50 cm in length and serial number [id number] R-waves 4.6 mV, pacing impedance 630 ohms, pacing threshold 0.6 V at 0.5 milliseconds, 10 V test was negative. Current protocol was used to implant and secure both leads. The leads were then secured to the underlying pectoralis fascia using 2 nonabsorbable sutures. Pocket was irrigated with antibiotic solution. Leads were connected to the generator ([employer] fortify Assura DR model CD 2357-40 Q serial #[id number]). Leads and generator were then placed in subfascial pocket. The wound was closed in 3 layers and dressed per protocol. DFT testing under anesthesia was performed. The DC fibber shock was used to induce ventricular fibrillation. The 1st shock at 10 joules and herrera polarity failed. Two drop outs were noted at least sensitivity. A 2nd shock of 20 joules was successful. Charge time 3.6 seconds, shock impedance 66 ohms. Three drop outs noted. No post shock noise. The device was then programmed to a single zone of VF therapy at 200 beats per minute with detection interval of 30 beats and 1st shock at 36 joules of subsequent shocks at maximum output. Monitor zone at 176 beats per minute was programmed with detection at 16 beats. Backup pacing was programmed DDD mode at 45 beats per minute. RESULTS: Successful dual-chamber ICD implantation for the above-mentioned indications. The patient tolerated the procedure well without any acute complications MMODL / IJN: [id number] /
[2019-02-10] MEDS: ACETAMINOPHEN TAB 325 MG TAB PO PRN (06:22)
--- NOTE | 2019-02-10 06:25 | XR ---
EXAMINATION TYPE: XR chest 2V DATE OF EXAM: 02/10/2019 HISTORY: Lead placement check. REFERENCE: Previous study dated 02/06/2019. FINDINGS: A bipolar pacemaker has been inserted via a left subclavian approach. The proximal lead is not well seen but I believe it overlies the right atrium. The distal lead overlies the right ventricl e. A battery pack projects over the right lower chest. The lungs appear clear. Pleural spaces are clear. There is no evidence of pneumothorax. The heart is not enlarged. IMPRESSION: SATISFACTORY PACEMAKER PLACEMENT.
[2019-02-10 07:57] VITALS: RESP 20
[2019-02-10 11:34] VITALS: BP 118/68; PULSE 59; TEMP 98.2
--- NOTE | 2019-02-10 12:51 | P.DS ---
Providers Date of admission: 02/07/19 11:04 Expected date of discharge: 02/10/19 Attending physician: Ileana Pavon Consults: 02/05/19 14:25 Consult Physician Routine Consulting Provider: Ramez Hatfield Consult Reason/Comments: Sinus pause Ammann near syncope Do you want consulting provider notified?: Yes Primary care physician: [facility] Course: 28-year-old gentleman with history of atrial flutter, patient underwent ablation for this at the age of 17, and since then has done very well. His heart rate normally runs in the 50s to 60s. According to the patient, he recently started running, gradually working himself of the running approximately 2-1/2 miles which she ran yesterday. One week ago the patient had an episode after running a two-mile run where he states that he felt like he was going to pass out, he sat down and the symptoms gradually resolved. Yesterday after running 2-1/2 miles, patient did well, the following morning he was at work, and again felt as though he was going to pass out, he states that he feels like everything is going black from his CPAP. He states that he sat down, checked his heart rate at that time which was in the 40s, he also states it felt as though he had prolonged pauses or periods of time without any pulse. He presented to her left hospital because of the symptoms. Patient is a nonsmoker, rarely drinks alcohol, does not drink energy drinks. He does state that he used to smoke but quit smoking a number of years ago. White blood cell count on MiraLAX 5.6, hemoglobin 14.6, platelet count 269, sodium 140, potassium 3.9, BUN 15, creatinine 0.8. Magnesium 1.9. Troponin 0.05. TSH 1.2. According to the documentation at [facility], patient was noted to have intermittent pauses lasting 3 seconds. Orthostatics were obtained which came back to be negative. He continued to have fairly frequent pauses according to the documentation of up to 4 seconds. Casodex patient was recommended to come to [facility] for further evaluation and treatment. Patient refused to be transported by ambulance and his drove him here. EKG sent for [facility] showed a normal sinus rhythm with evidence of 3 second pauses. Patient was scheduled at the end of the month to see Dr. Hatfield in the office as a new patient. At the time of my examination, patient feels well, denies any pal pitations, no dizziness or lightheadedness. Blood pressure 120/70 with a heart rate of 60, 98% on room air. EKG on presentation here showed a normal sinus rhythm with a first-degree AV block. 02/07 Patient seen and examined this morning, he had several episodes of pauses noted on the monitor through the night, all less than 2 seconds in duration. We also reviewed the rhythm strips from [facility], it did show several episodes of pauses up to 3 seconds, 1 pause was just shy of 4 seconds. At the time of her examination today, patient feels well, he denies any dizziness or lightheadedness, but does state through the night that he had 1 brief episode where he just did not feel right. We have put him in consultation this morning for Dr. Hatfield to come and evaluate the patient. Hemodynamically he is stable. 02/08/2019 Patient seen and examined this morning, he was seen in consultation by Dr. Hatfield, plans are for the patient to proceed with implantation of AICD tomorrow. in a lengthy discussion with the patient and his along with his parents. 02/09/2019 Patient is seen and evaluated in room at bedside; multiple family members are present in the room; patient is status post dual-chamber ICD implant; denies any specific complaints Vital signs remain stable with a temperature of 98.2, pulse 57, respiration 20 and blood pressure 110/65; SpO2 of 80% on room air Labs reveal a normal CBC and chemical profile is unremarkable Per cardiology patient will be monitored on telemetry for another 24 hours and possible discharge tomorrow if remains stable 02/10/2019 patient cleared for dc by cardiolody service Patient Condition at Discharge: Stable Plan - Discharge Summary Discharge Rx Participant: No New Discharge Prescriptions: Continue No Known Home Medications Discharge Medication List No Known Home Medications 02/05/19 [History] Follow up Appointment(s)/Referral(s): John Keller MD [Primary Care Provider] - 1-2 days Patient Instructions/Handouts: Bradycardia (DC), Near Syncope (DC) Discharge Disposition: HOME SELF-CARE
--- NOTE | 2019-02-10 13:47 | P.PN ---
Subjective Progress Note Date: 02/10/19 Principal diagnosis: Near Syncope/Bradycardia/S/P ICD This is a 28-year-old male with history of sudden cardiac in family (sister), atrial flutter s/p radiofrequency ablation om 2007 at 17 year of age, SSS, tachybradycardia syndrome and AICD implantation on 02/09/[address] Hatfield. Patient sitting up in bed this a.m. and doing well with no current complaints of chest pain, chest pressure, shortness breath or palpitations. Patient states he is eating, drinking and has no problems with urination/bowels. Patient also states he is able to ambulate with ease. Patient continues to wear sling on left arm. Patient surgical site for AICD covered with gauze/tagaderm, CDI, no bleeds or hematoma noted. Labs WNL. VSS. 98% on room air. Currently paced on monitors, heart rate 67. Patient anticipating discharge. Dr. Shetty has seen patient this a.m. and has cleared him for discharge. PHYSICAL EXAMINATION: HEENT: Head is atraumatic, normocephalic. Pupils are equal, round. Sclerae anicteric. Conjunctivae are clear. Mucous membranes of the mouth are moist. Neck is supple. There is no jugular venous distention. No carotid bruit is heard. No thyromegaly. LUNGS: Clear to auscultation no wheezes, rales or rhonchi. No chest wall tenderness is noted on palpation or with deep breathing. HEART: Regular rate and rhythm without murmurs, rubs or gallops. S1 and S2 heard. ABDOMEN: Abdominal exam revealed normal bowel sounds. The abdomen was soft, non- tender, and without masses, organomegaly, or appreciable enlargement of the abdominal aorta. EXTREMITIES: Examination of the extremities revealed easily palpable radial, femoral and pedal pulses. There was no cyanosis, clubbing or edema. No calf tenderness noted. VASCULAR: Radial and dorsalis pedis pulses palpated, no evidence of clubbing. NEUROLOGIC: Patient is awake, alert and oriented x3. There were no obvious focal neurologic abnormalities. AICD implantation site CDI, no bleeds or hematoma noted. FINAL IMPRESSION: 1. S/P AICD. 2. Family HX of sudden cardiac . 3. Atrial flutter s/p radiofrequency ablation. 4. SSS. 5. Tachy/carmelita syndrome. PLAN: Pt CLEAR FOR DISCHARGE from a cardiology perspective. Pt CLEAR FOR DISCHARGE per Dr. Hatfield as well. Patient to continue same all medical/medication regime. Patient instructed on sling use, AICD site care, weight restriction with lifting and arm precautions with new AICD. Follow-up with Dr. Hatfield in an office per directions. Objective - Vital Signs Vital signs: Vital Signs Temp 98.2 F 02/10/19 11:34 Pulse 59 L 02/10/19 11:34 Resp 20 02/10/19 11:34 BP 118/68 02/10/19 11:34 Pulse Ox 100 02/10/19 11:34 Intake & Output 02/09/19 02/10/19 02/10/19 19:59 06:59 18:59 Intake Total Output Total Balance Weight Intake: IV Intake, IV Titration Amount ACETAMINOPHEN IV (For NPO ) 1,000 mg In Empty Bag 1 bag @ 400 mls/hr IVPB ONCE ONE Rx#:[id number] IV Fluid Continuation 1, 000 ml @ 0 mls/hr IV .STK -MED ONE Rx#:[id number] ceFAZolin 2 gm In Sodium Chloride 0.9% 50 ml @ 100 mls/hr IVPB Q6H [facility] Rx#: [id number] Oral Output: Urine Other: Voiding Method - Labs CBC & Chem 7: 02/08/19 06:36 02/08/19 06:36
== END 2019-02-10 14:50 | disposition home or self-care (01) | DRG 227 ==
LOC: EC 11:55 → 3SCARD 14:24 → OBSVTOIN 02-07 11:04
PROVIDERS: ADMIT Hospitalist; ATTEND Hospitalist
PROC: 02HK3KZ Insertion of Defibrillator Lead into Right Ventricle, Percutaneous Approach (ICD-10-PCS; principal; 2019-02-09 08:00)
PROC: 02H63KZ Insertion of Defibrillator Lead into Right Atrium, Percutaneous Approach (ICD-10-PCS; principal; 2019-02-09 08:00)
PROC: 0JH609Z Insertion of Cardiac Resynchronization Defibrillator Pulse Generator into Chest Subcutaneous Tissue and Fascia, Open Approach (ICD-10-PCS; principal; 2019-02-09 08:00)
DX: I49.5 Sick sinus syndrome (principal); I47.1 Supraventricular tachycardia; I44.0 Atrioventricular block, first degree; Z82.41 Family history of sudden cardiac death; Z82.49 Family history of ischemic heart disease and other diseases of the circulatory system; Z86.74 Personal history of sudden cardiac arrest; Z87.891 Personal history of nicotine dependence
CPT/HCPCS: 33249; 36415; 71045; 71046; 80048; 80053; 80306; 81003; 83735; 84443; 84484; 85025; 86618; 93005; 93017; 93306; 93641; 99285

== ENCOUNTER 2020-11-17 14:33 | Day surgery (SDC) | payer OTHER ==
[2020-11-13 13:48] VITALS: BMI 28.7
[~2020-11-17 14:33] MED LIST: SODIUM CHLORIDE 0.9% 1,000 ML IV SCH
[2020-11-17 15:23] VITALS: RESP 16; TEMP 97.7
[2020-11-17] MEDS ORDERED: MIDAZOLAM 2 MG/2 ML VIAL ONE (16:56)
[2020-11-17] MEDS ORDERED: PROPOFOL 10 MG/ML 20 ML VIAL IV ONE (16:56)
--- NOTE | 2020-11-17 17:31 | P.EPPROC ---
- EP Procedure Note Electrophysiology Procedure Note: Diagnosis JVD of syndrome/progressive conduction system disease High DFTs of 20 J previously ostia at implant History of ventricular fibrillation requiring ICD shock Patient has a 40j [employer] dual-chamber ICD The ICD was interrogated Atrial pacing threshold 0.9 V at 0.5 ms, P waves greater than 5 mV and pacing impedance 450 ohms RV threshold 1 warted 0.5 ms, R waves 5 mV, pacing impedance 560 ohms High voltage impedance 68 ohms Under conscious sedation defibrillation level testing was performed A 20 J shock failed to defibrillate the patient successfully A 30 J shock was successfully Ventricular fibrillation sensing was adequate no dropouts High-voltage impedance 75 ohms First charge time 3.9 seconds Last charge time 6.6 seconds Repeat DFT at 25 J, Total configuration Successful defibrillation to sinus rhythm High-voltage lead impedance 74 ohms Charge time 5 seconds Device reprogrammed First cardioversion max output, 36 J followed by 40 J First defibrillation max output, 36 J followed by 40 J Impression High DFT Device functioning normally Device reprogrammed appropriately
[2020-11-17 17:50] VITALS: BP 125/69; PULSE 57
== END 2020-11-17 18:15 | disposition home or self-care (01) ==
LOC: CATHEP 14:33
PROVIDERS: ATTEND Internal Medicine Clinical Cardiac Electrophysiology
DX: I49.01 Ventricular fibrillation (principal); T82.119A Breakdown (mechanical) of unspecified cardiac electronic device, initial encounter
CPT/HCPCS: 93642; J2250; J2704